=== PATIENT | female | born 1950 | race Caucasian/White ===

== ENCOUNTER 2021-09-30 08:06 | Emergency (ER) | payer MEDICARE, BC ==
[2021-09-30] MEDS ORDERED: Ketorolac 30 MG/ML SDV IM ONE (08:23)
[2021-09-30] MEDS ORDERED: Ondansetron 4 MG Tab.DIS PO ONE (08:24)
[2021-09-30] MEDS ORDERED: diphenhydrAMINE 50 MG/ML SDV IM ONE (08:24)
== END 2021-09-30 09:03 | disposition home or self-care (01) ==
LOC: VM.ED 08:06
DX: G43.909 Migraine, unspecified, not intractable, without status migrainosus (principal); Z79.899 Other long term (current) drug therapy
CPT/HCPCS: 96372; 99283; A9270-GY; J1200; J1885; J3230